=== PATIENT | female | born 2000 | race Caucasian/White ===

== ENCOUNTER 2020-06-24 23:41 | Observation (INO) ==
[2020-06-25] MEDS ORDERED: ONDANSETRON INJ 2 MG/ML 2 ML VIAL IV STA (00:10)
[2020-06-25] MEDS ORDERED: SODIUM CHLORIDE 0.9% 1000ML 1,000 ML IV ONE (00:10)
[2020-06-25] MEDS ORDERED: MoRPHine SULFATE 2 MG/ML CARP IV STA (00:10)
--- NOTE | 2020-06-25 00:14 | Emergency Department Note ---
Impression & Plan Torsion of left ovary, Dermoid cyst of left ovary ED Provider Note Name: LINDSEY MONTANEZ Age: 19 Sex: F Arrives Via: Walk-In Informant: Patient ED Provider: Fred Breen MD Chief Complaint: Left Pelvic Pain Impression: Torsion of Left ovary Dermoid Cyst of left ovary Medical Decision Makin yr old female without PMH arrives for evaluation of left pelvic pain. Acute onset this evening radiating to left lower back. No flank pain. Exam concerning for left ovarian pathology and emergent US ordered after pain controlled with small dose morphine. US tech called with concerns for torsion and PULMONARY FELLOW consult immediately. Discussed with Dr Chowdhury who came to evaluate the patient. After his evaluation of patient he felt that left ovary will most likely be required to be removed and thus will await parents arrival before OR. Given this I requested he admit patient for further management. Patient reevaluated and understands plan as does mother. Pain is ok and declines further pain medications. Triage/Nursing Notes reviewed by Me Differentials:Ovarian torsion, pid, appendicitis, renal colic, UTI, pyelonephritis amongst other pathologies. Vital Signs: reviewed and remarkable for no significant abnormalities Interventions: saline lock, morphine iv, zofran iv, nss bolus Labs:Reviewed and remarkable for no significant abnormalities Imaging:Radiologist interpretation reviewed by me: Left ovarian torsion with dermoid Consults:Dr Chowdhury heating and ventilation engineer Plan: Disposition: Hospitalization Condition: Good History of Present Illness:19 yr old female arrives for evaluation of abdominal pain. Patient notes that she started having LLQ pain this evening. Rapidly worsening with mild radiation to left lower back. Worse with movement, better with rest. Motrin 600mg po without improvement. No associated symptoms. Notes recently stopped birthcontrol and had IUD placed. Previously sexually active but not recently. History of what was presumed to be ovarian cyst when 11 yrs old though no history of imaging/surgery. Denies trauma, injuries. No fevers, chills, nausea, vomiting, urinary symptoms, bowel changes nor other symptoms. ROS: See above HPI for pertinent positives & negatives. A total of 10 systems reviewed and were otherwise negative. Past Medical History:None Past Surgical History:None Family History:healthy Social History:[employer] from [place], no smoking Home Medications:None Allergies:None Vitals:Blood Pressure: 135/75, Pulse 102, RR 16, T 36.6C, O2 99% on RA Physical Exam: GENERAL: Patient is uncomfortable appearing and in mild distress. EYES: No scleral icterus, unremarkable pupils. ENT: Mucous membranes moist, no nasal congestion. NECK: No masses appreciated, nomeningismus, trachea is midline. RESPIRATORY: No dyspnea. Clear to auscultation and equal bilaterally. No wheeze, no rhonchi. CARDIOVASCULAR: Regular rate and rhythm.No murmurs, rubs, gallops appreciated. GASTROINTESTINAL: TTP over left lower quadrant. Abdomen soft, non-tender, no peritonitis.Bowel sounds positive.No masses appreciated. BACK: No midline tenderness, no CVA tenderness EXTREMITIES: Normal motion all extremities, no cyanosis, no edema. NEUROLOGIC: Alert and oriented, no acute motor or sensory deficits, no focal weakness, cranial nerves grossly intact. SKIN: No rash, no jaundice, no diaphoresis. PSYCH: Appropriate GCS: 15 ED Course: Times/Reassessments: feeling better with morphine, awaiting rules examiner eval. Dr Chowdhury feels that emergent OR not indicated as patient more comfortable and will likely need ovary removed. He will admit and plan OR in am and await parents arrival. Fred Breen MD Past Med/Surg History Medical History (Updated 06/25/20 @ 06:12 by Fred Breen MD) No known health problems Family History (Updated 06/25/20 @ 04:53 by Claudette Jade RN) Other No known health problems Social History Smoking Status: Never smoker Second Hand Exposure: No; Do You Dip or Chew Tobacco: No; Hx Alcohol Use: Yes Alcohol type: beer, wine and hard liquor Hx Substance Use: No Preferred Language: Rwandan Communication Ability: Effective Vitamin Manager Required: No Beliefs That Will Affect Care: None Current Living Situation: Other Current Living Situation Comment: apartment, [employer] student Feels Safe at Home: Yes Safety Concerns: Feels Safe At This Time Assistive Devices: None Allergies Allergies Allergy/AdvReac Type Severity Reaction Status Date / Time No Known Allergies Allergy Verified 06/25/20 04:53 Results & Data (ED) Vital Signs Vital Signs - 24 hr 06/24/20 23:46 06/25/20 01:12 06/25/20 02:17 Temperature 36.6 C Temperature Source Temporal Artery Scan Pulse Rate 102 H Pulse Rate [Right] 120 H 98 H Pulse Rhythm [Right] Regular Pulse Strength [Right] Normal Respiratory Rate 16 16 16 Respiratory Effort / Characteristics Non-Labored Spontaneous Non-Labored Spontaneous Respiratory Depth Normal Normal Blood Pressure 135/75 Blood Pressure [Right Arm] 141/95 H 112/61 Blood Pressure Mean 95 Blood Pressure Mean [Right Arm] 110 78 Blood Pressure Position [Right Arm] Sitting Lying Pulse Oximetry 99 98 98 Oxygen Delivery Method Room Air Room Air Room Air Sepsis Recent Fever Within 48 Hours No Sepsis New/Unexplained Change in Mental Status No Sepsis Action Taken by Nursing No Action Required Laboratory Data Result diagrams: 06/25/20 00:00 06/25/20 00:00 Lab Results 06/25/20 06/25/20 06/25/20 Range/Units 00:00 00:00 00:00 WBC 5.78 (4.8-10.8) K/uL RBC 5.14 (4.2-5.4) M/uL Hgb 15.5 (12.0-16.0) g/dL Hct 42.9 (37-47) % MCV 83.5 (80-100) fL MCH 30.2 (25-34) pg MCHC 36.1 H (32-36) g/dL RDW Std Deviation 37.9 (36.4-46.3) fL RDW Coeff of Clary 12.4 (11.5-14.5) % Plt Count 229 (130-400) K/uL MPV 11.9 H (7.4-10.4) fL Immature Gran % (Auto) 0.2 % Neut % (Auto) 46.5 % Lymph % (Auto) 42.2 % Leslie % (Auto) 9.0 % Eos % (Auto) 1.6 % Baso % (Auto) 0.5 % Neut # (Auto) 2.69 (1.4-6.5) K/uL Lymph # (Auto) 2.44 (1.2-3.4) K/uL Leslie # (Auto) 0.52 (0.11-0.59) K/uL Eos # (Auto) 0.09 (0-0.5) K/uL Baso # (Auto) 0.03 (0-0.2) K/uL Immature Gran # (Auto) 0.01 (0.00-0.02) K/uL Sodium 140 (136-145) mmol/L Potassium 3.5 (3.5-5.1) mmol/L Chloride 106 (98-107) mmol/L Carbon Dioxide 29 (21-32) mmol/L Anion Gap 5.0 (3-11) BUN 18 (7-18) mg/dl Creatinine 1.02 (0.6-1.2) mg/dl Est Cr Clr Drug Dosing 81.7 ml/min Est GFR ( Amer) 91.1 Est GFR (Non-Af Amer) 78.6 BUN/Creatinine Ratio 17.8 (10-20) Glucose 84 (70-99) mg/dl Calcium 9.3 (8.5-10.1) mg/dl Magnesium 2.3 (1.8-2.4) mg/dl Total Bilirubin 0.7 (0.2-1) mg/dl Direct Bilirubin 0.2 (0-0.2) mg/dl AST 20 (15-37) U/L ALT 23 (12-78) U/L Alkaline Phosphatase 81 (45-117) U/L Total Protein 8.4 H (6.4-8.2) gm/dl Albumin 4.6 (3.4-5.0) gm/dl Lipase 175 (73-393) U/L Urine Color Yellow Urine Appearance Clear (Clear) Urine pH 6.5 (4.5-7.5) Ur Specific [place]ville 1.011 (1.000-1.030) Urine Protein Negative (Negative) Urine Glucose (UA) Negative (Negative) Urine Ketones Negative (Negative) Urine Blood Negative (Negative) Urine Nitrite Negative (Negative) Urine Bilirubin Negative (Negative) Urine Urobilinogen Negative (Negative) Ur Leukocyte Esterase Negative (Negative) Urine Test (Negative) COVID-19 Eval Order SARS-CoV-2 (PCR) (Negative) Influenza Type A (PCR) (Neg) Influenza Type B (PCR) (Neg) RSV (RT-PCR) (Neg) 06/25/20 06/25/20 06/25/20 Range/Units 00:00 01:09 01:09 WBC (4.8-10.8) K/uL RBC (4.2-5.4) M/uL Hgb (12.0-16.0) g/dL Hct (37-47) % MCV (80-100) fL MCH (25-34) pg MCHC (32-36) g/dL RDW Std Deviation (36.4-46.3) fL RDW Coeff of Clary (11.5-14.5) % Plt Count (130-400) K/uL MPV (7.4-10.4) fL Immature Gran % (Auto) % Neut % (Auto) % Lymph % (Auto) % Leslie % (Auto) % Eos % (Auto) % Baso % (Auto) % Neut # (Auto) (1.4-6.5) K/uL Lymph # (Auto) (1.2-3.4) K/uL Leslie # (Auto) (0.11-0.59) K/uL Eos # (Auto) (0-0.5) K/uL Baso # (Auto) (0-0.2) K/uL Immature Gran # (Auto) (0.00-0.02) K/uL Sodium (136-145) mmol/L Potassium (3.5-5.1) mmol/L Chloride (98-107) mmol/L Carbon Dioxide (21-32) mmol/L Anion Gap (3-11) BUN (7-18) mg/dl Creatinine (0.6-1.2) mg/dl Est Cr Clr Drug Dosing ml/min Est GFR ( Amer) Est GFR (Non-Af Amer) BUN/Creatinine Ratio (10-20) Glucose (70-99) mg/dl Calcium (8.5-10.1) mg/dl Magnesium (1.8-2.4) mg/dl Total Bilirubin (0.2-1) mg/dl Direct Bilirubin (0-0.2) mg/dl AST (15-37) U/L ALT (12-78) U/L Alkaline Phosphatase (45-117) U/L Total Protein (6.4-8.2) gm/dl Albumin (3.4-5.0) gm/dl Lipase (73-393) U/L Urine Color Urine Appearance (Clear) Urine pH (4.5-7.5) Ur Specific [place] (1.000-1.030) Urine Protein (Negative) Urine Glucose (UA) (Negative) Urine Ketones (Negative) Urine Blood (Negative) Urine Nitrite (Negative) Urine Bilirubin (Negative) Urine Urobilinogen (Negative) Ur Leukocyte Esterase (Negative) Urine Test Negative (Negative) COVID-19 Eval Order CovFluRsv at [facility] SARS-CoV-2 (PCR) NEGATIVE (Negative) Influenza Type A (PCR) Negative (Neg) Influenza Type B (PCR) Negative (Neg) RSV (RT-PCR) Negative (Neg) Administered Medications Discontinued Medications Sodium Chloride (Nss 1000ml) 1,000 mls @ 999 mls/hr IV .Q1H1M ONE Stop: 06/25/20 01:10 Last Infusion: 06/25/20 01:19 Dose: 0 mls/hr Documented by: [id number] Admin: 06/25/20 00:17 Dose: 999 mls/hr Documented by: [id number] Lactated Ringer's (Lr) 1,000 mls @ 125 mls/hr IV .Q8H PRN; Protocol PRN Reason: L&D Protocol Stop: 07/25/20 02:29 Last Infusion: 06/25/20 11:10 Dose: 0 mls/hr Documented by: [id number] Admin: 06/25/20 04:38 Dose: 125 mls/hr Documented by: [id number] Morphine Sulfate (Morphine Sulfate 2 Mg/Ml Carp) 2 mg IV NOW STA Stop: 06/25/20 00:11 Last Admin: 06/25/20 00:17 Dose: 2 mg Documented by: [id number] Ondansetron HCl (Ondansetron Inj 2 Mg/Ml 2 Ml Vial) 4 mg IV NOW STA Stop: 06/25/20 00:11 Last Admin: 06/25/20 00:17 Dose: 4 mg Documented by: [id number] Imaging Data Radiologist's Impression: Pelvis Ultrasound 06/25/20 00:10 ULTRASOUND OF THE PELVIS CLINICAL HISTORY: Left pelvic pain. COMPARISON STUDY: No priors. TECHNIQUE: Real-time, grayscale, and color flow sonography of the pelvis is performed both transabdominally and endovaginally. Images are reviewed in the transverse and longitudinal planes. The endovaginal examination was performed for better assessment of the ovaries and adnexa. FINDINGS: Uterus: The uterus is normal in size and echotexture, measuring 7.8 x 3.7 x 4.8 cm. Fluid is noted within the endocervical canal. Endometrium: The endometrium is normal in appearance, and the endometrial stripe is normal in thickness measuring up to 0.8 cm. An intrauterine device is in appropriate position. Ovaries: The right ovary is normal in appearance, measuring 4.7 x 2.5 x 2.3 cm. Normal Doppler waveforms are shown within the right ovary an irregular right ovarian follicles. The left ovary measures 5.3 x 4.0 x 4.2 cm. There is a well- circumscribed echogenic mass lesion in the left ovary measuring up to 4.1 cm. This is typical in appearance for a dermoid. No Doppler flow is identified within the left ovary. Pelvis: There is trace free fluid in the cul-de-sac. No concerning adnexal lesion is seen. IMPRESSION: 1. No Doppler flow is identified within the left ovary, and findings are highly concerning for ovarian torsion. This may be related to a left ovarian dermoid. Surgical consultation is advised. 2. The uterus and right ovary are normal in appearance noting an intrauterine device in place. 3. Trace nonspecific free fluid in the cul-de-sac is likely within physiologic limits. ACT 112: Negative or not required by law. Electronically signed by: Blayne Vasquez M.D. 06/25/2020 1:05 AM Transvaginal US 06/25/20 00:10 ULTRASOUND OF THE PELVIS CLINICAL HISTORY: Left pelvic pain. COMPARISON STUDY: No priors. TECHNIQUE: Real-time, grayscale, and color flow sonography of the pelvis is performed both transabdominally and endovaginally. Images are reviewed in the transverse and longitudinal planes. The endovaginal examination was performed for better assessment of the ovaries and adnexa. FINDINGS: Uterus: The uterus is normal in size and echotexture, measuring 7.8 x 3.7 x 4.8 cm. Fluid is noted within the endocervical canal. Endometrium: The endometrium is normal in appearance, and the endometrial stripe is normal in thickness measuring up to 0.8 cm. An intrauterine device is in appropriate position. Ovaries: The right ovary is normal in appearance, measuring 4.7 x 2.5 x 2.3 cm. Normal Doppler waveforms are shown within the right ovary an irregular right ovarian follicles. The left ovary measures 5.3 x 4.0 x 4.2 cm. There is a well- circumscribed echogenic mass lesion in the left ovary measuring up to 4.1 cm. This is typical in appearance for a dermoid. No Doppler flow is identified within the left ovary. Pelvis: There is trace free fluid in the cul-de-sac. No concerning adnexal lesion is seen. IMPRESSION: 1. No Doppler flow is identified within the left ovary, and findings are highly concerning for ovarian torsion. This may be related to a left ovarian dermoid. Surgical consultation is advised. 2. The uterus and right ovary are normal in appearance noting an intrauterine device in place. 3. Trace nonspecific free fluid in the cul-de-sac is likely within physiologic limits. ACT 112: Negative or not required by law. Electronically signed by: Blayne Vasquez M.D. 06/25/2020 1:05 AM Discharge Plan Visit Data Chief Complaint: Abdominal Pain Stated Complaint: LOWER L SIDE ABDOMINAL PAIN ED Provider: Fred Breen Discharge Problem: Torsion of left ovary, Dermoid cyst of left ovary Patient Disposition: Admitted As Inpatient Discharge Instructions Interventions: ED Discharge Assessment Last Done: 06/25/20 03:50
[2020-06-25 00:21] LABS: Appearance Urine Clear (Clear); Basophils # (auto) 0.03 K/uL (0-0.2); Basophils % (auto) 0.5 %; Bilirubin Urine Negative (Negative); Blood Urine Negative (Negative); Color Urine Yellow; Eosinophils # (auto) 0.09 K/uL (0-0.5); Eosinophils % (auto) 1.6 %; Glucose Urine UA Negative (Negative); Hematocrit (blood only) 42.9 % (37-47); Hemoglobin 15.5 g/dL (12.0-16.0); Immature Granulocytes # (auto) 0.01 K/uL (0.00-0.02); Immature Granulocytes % (auto) 0.2 %; Ketones Urine Negative (Negative); Leukocyte Esterase Urine Negative (Negative); Lymphocytes # (auto) 2.44 K/uL (1.2-3.4); Lymphocytes % (auto) 42.2 %; Mean Corpuscular Hemoglobin 30.2 pg (25-34); Mean Corpuscular Hgb Conc 36.1 g/dL (32-36); Mean Corpuscular Volume 83.5 fL (80-100); Mean Platelet Volume 11.9 fL (7.4-10.4); Monocytes # (auto) 0.52 K/uL (0.11-0.59); Neutrophils # (auto) 2.69 K/uL (1.4-6.5); Neutrophils % (auto) 46.5 %; Nitrite Urine Negative (Negative); Platelet Count 229 K/uL (130-400); Protein Urine Negative (Negative); RDW Coefficient of Variation 12.4 % (11.5-14.5); RDW Standard Deviation 37.9 fL (36.4-46.3); Red Blood Count 5.14 M/uL (4.2-5.4); Specific Gravity Urine 1.011 (1.000-1.030); Urobilinogen Urine Negative (Negative); White Blood Count 5.78 K/uL (4.8-10.8); pH Urine 6.5 (4.5-7.5)
[2020-06-25 00:23] LABS: Pregnancy Test, Urine Negative (Negative)
[2020-06-25 00:29] LABS: Albumin Level 4.6 gm/dl (3.4-5.0); BUN Creatinine Ratio 17.8 (10-20); Bilirubin Direct 0.2 mg/dl (0-0.2); Calcium 9.3 mg/dl (8.5-10.1); Creatinine Clr Calc Pharmacy 81.7 ml/min; Est GFR (African American) 91.1; Est GFR (Non-African American) 78.6; Magnesium 2.3 mg/dl (1.8-2.4); Potassium 3.5 mmol/L (3.5-5.1)
[2020-06-25 00:31] LABS: Bilirubin,Total 0.7 mg/dl (0.2-1); Total Protein 8.4 gm/dl (6.4-8.2)
--- NOTE | 2020-06-25 01:07 | Ultrasound Report ---
ULTRASOUND OF THE PELVIS CLINICAL HISTORY: Left pelvic pain. COMPARISON STUDY: No priors. TECHNIQUE: Real-time, grayscale, and color flow sonography of the pelvis is performed both transabdom inally and endovaginally. Images are reviewed in the transverse and longitudinal planes. The endovagi nal examination was performed for better assessment of the ovaries and adnexa. FINDINGS: Uterus: The uterus is normal in size and echotexture, measuring 7.8 x 3.7 x 4.8 cm. Fluid is noted wi thin the endocervical canal. Endometrium: The endometrium is normal in appearance, and the endometrial stripe is normal in thickne ss measuring up to 0.8 cm. An intrauterine device is in appropriate position. Ovaries: The right ovary is normal in appearance, measuring 4.7 x 2.5 x 2.3 cm. Normal Doppler wavefo willi are shown within the right ovary an irregular right ovarian follicles. The left ovary measures 5. 3 x 4.0 x 4.2 cm. There is a well-circumscribed echogenic mass lesion in the left ovary measuring up to 4.1 cm. This is typical in appearance for a dermoid. No Doppler flow is identified within the left ovary. Pelvis: There is trace free fluid in the cul-de-sac. No concerning adnexal lesion is seen. IMPRESSION: 1. No Doppler flow is identified within the left ovary, and findings are highly concerning for ovaria n torsion. This may be related to a left ovarian dermoid. Surgical consultation is advised. 2. The uterus and right ovary are normal in appearance noting an intrauterine device in place. 3. Trace nonspecific free fluid in the cul-de-sac is likely within physiologic limits. ACT 112: Negative or not required by law. Electronically signed by: Blayne Vasquez M.D. 06/25/2020 1:05 AM
[2020-06-25] MEDS ORDERED: MoRPHine SULFATE 4 MG/ML 1 ML CARP\\VIAL IV PRN (01:32)
[2020-06-25 02:23] LABS: Influenza A virus by PCR Negative (Neg); Influenza B virus by PCR Negative (Neg); RSV by PCR Negative (Neg); SARS CoV2 RNA(COVID-19) InHosp NEGATIVE (Negative)
[2020-06-25] MEDS ORDERED: LACTATED RINGER'S 1,000 ML IV PRN (02:30)
--- NOTE | 2020-06-25 08:56 | Ultrasound Report ---
EXAMINATION: PELVIC ULTRASOUND (endovaginal scanning only) CLINICAL HISTORY: Left pelvic pain, possible torsion. COMPARISON STUDY: Earlier in the day FINDINGS: The uterus measured 8.1 x 3.4 x 4.7 cm. The endometrial stripe measured 5 mm. An IUD is visualized.. The right ovary measured 43 x 25 x 23 mm.. The left ovary measured 4.6 x 4.6 x 4.3 mm. There is a 42 mm hyperechoic circumscribed mass involving the left ovary. This may represent a dermoid/teratoma. Minimal blood flow is visualized within the l eft ovary.. There is trace fluid within the cul-de-sac IMPRESSION: 1. 42 mm hyperechoic left ovarian mass, possibly representing a dermoid/teratoma 2. Blood flow was visualized in the left ovary although it is diminished. Given the history of left-s ided pain a partial torsion cannot be excluded. ACT 112: Negative or not required by law. Electronically signed by: Chavo Saucedo M.D. 06/25/2020 8:55 AM
--- NOTE | 2020-06-25 10:05 | History and Physical Report ---
DATE OF ADMISSION: 06/25/2020 The consult was placed by Dr. Ramirez from the ER. HISTORY OF PRESENT ILLNESS: This is a 19-year-old G0, who presented to the Emergency Room with left lower pelvic pain. The patient was seen by ER doctor. Labs were ordered including an ultrasound. Ultrasound done showed uterus about 7 mm x 5 week uterus, right ovary was about 4.7 x 2.5 x 2.3. Left ovary was 5.3 x 4.0 x 4.2 with 4.1 lesions suspicious for dermoid cyst. No Doppler flow was seen on that ovary. Diagnosis from pelvic ultrasound was suspicious for ovarian torsion. The patient had been on OCPs for several years and has done well. She switched from OCP to IUD several months ago. She had complain of some nausea, but no vomiting, no shortness of breath, no chills, no fever. PAST MEDICAL HISTORY: No history of diabetes, hypertension or asthma. PAST SURGICAL HISTORY: None. SOCIAL HISTORY: The patient denies tobacco, drug use or alcohol. 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 ALLERGIES: No known drug allergies. FAMILY HISTORY: Noncontributory. PHYSICAL EXAMINATION: GENERAL: In the ER, the patient is alert, awake, rates her pain 2-3. She had been given morphine at the time of my arrival. VITAL SIGNS: In the ER were reassuring temperature was 36.2, pulse was 102, blood pressure was 135/75. HEART: S1, S2, regular rhythm and rate. LUNGS: Clear to auscultation bilaterally. ABDOMEN: Nontender, nondistended, no guarding. Palpation of the left lower pelvic shows slight tenderness but no guarding as stated above. EXTREMITIES: No cyanosis, clubbing or edema. ASSESSMENT AND PLAN: A 19-year-old with a possible left ovarian torsion and dermoid. Discussed findings with patient. I offered the patient surgery. We have discussed chance of saving the ovary versus removal. Since the patient has dermoid on that ovary, I suggested removal of the ovary. The patient became very tearful and is very concerned about undergoing surgery. She wants to wait for her parents to come from [place]. At this point as stated above because of the changes of a dermoid on that ovary, I do not think saving the ovary will be a good option, so we continue to discuss all the possibilities. It became apparent that the patient did not want to proceed with any surgery of any kind until her parents were here. Decision therefore was made to bring the patient back to labor and delivery and control pain management and wait for her parents to arrive.
--- NOTE | 2020-06-25 11:09 | Progress Note ---
Date of Service June 25, 2020 Assessment & Plan Admission and Anticipated Discharge Date Admission Date: June 25, 2020 Subjective Pt doing well Pain is 2/10- remarkably improvement Repeat sono showed the presence of doppler flow Parent are here and we have discussed options including surgery and expectant management Pt and parents wish to do expectant management d/c home with instructions Results & Data ([facility]) Vital Signs (Past 12 Hours) Vital Signs Temp Pulse Pulse Pulse Resp BP BP 06/25/20 07:24 36.7 C 60 16 113/76 06/25/20 04:00 36.7 C 75 16 06/25/20 03:50 94 H 16 110/61 06/25/20 02:17 98 H 16 06/25/20 01:12 120 H 16 06/24/20 23:46 36.6 C 102 H 16 135/75 BP Pulse Ox 06/25/20 07:24 99 06/25/20 04:00 123/86 99 06/25/20 03:50 98 06/25/20 02:17 112/61 98 06/25/20 01:12 141/95 H 98 06/24/20 23:46 99
--- NOTE | 2020-06-25 23:31 | Discharge Summary (DS) ---
CHIEF COMPLAINT: 1. Left lower pelvic pain. 2. Ovarian torsion was suspected. HISTORY OF PRESENT ILLNESS: This is a 19-year-old G0 who presented to the Emergency Room with left lower pelvic pain. Ultrasound done showed possible ovarian torsion with dermoid cyst. The patient was offered surgery. She declined and decided to do expectant management. She was observed overnight in the hospital. On initial ultrasound, there was no Doppler flow. Repeat ultrasound this morning shows the presence of Doppler flow and pain is remarkably improved. On admission, her pain was 8/10. Today her pain is between 1 and 2 and the patient wishes to be discharged home. She is a college student. Parents drove from [place] this morning, admitted patient and the parents have agreed for the patient to be discharged home and to be observed as an outpatient. PAST MEDICAL HISTORY: No history of diabetes, hypertension or asthma. PAST SURGICAL HISTORY: None. SOCIAL HISTORY: The patient is a student. Denies tobacco, drug or alcohol use. FAMILY HISTORY: Noncontributory. ALLERGIES: None. REVIEW OF SYSTEMS: Negative, as per HPI above. PHYSICAL EXAMINATION: VITAL SIGNS: This morning, temperature is 36.7, respirations 16, pulse is 60, blood pressure is 113/76. HEART: S1, S2, regular rhythm and rate. LUNGS: Clear to auscultation bilaterally. ABDOMEN: Slightly tender on the left side. No guarding or rebound. EXTREMITIES: No cyanosis, clubbing or edema. LABORATORY DATA: On 06/25/2020 showed hemoglobin of 15.5, hematocrit of 42.9, white count of 5.7. There is no bandemia. CONDITION ON DISCHARGE: Stable. OPERATION: Observation for left pelvic pain. DISCHARGE DIAGNOSES: Left pelvic pain, suspected ovarian torsion. Repeat ultrasound this morning, however, shows presence of Doppler. The patient has been remarkably improved and parents and the patient wished to do expectant management. PLAN ON DISCHARGE: I have discussed the above findings with the patient and family. Plan is to have patient follow up as an outpatient. The patient will see me in the office. We will repeat ultrasounds to see the status of the ovary. The patient knows to call the office or return to ER if pain worsened or if she has any fever or any abnormal symptoms.
== END 2020-06-25 12:04 | disposition home or self-care (01) ==
LOC: ED 23:41 → 4N 23:41